=== PATIENT | female | born 1965 | race African-American/Black ===

== ENCOUNTER 2020-12-03 16:13 | Inpatient (IN) | payer OTHER ==
[~2020-12-03] VITALS: Ht 162.6 cm; Wt 108.4 kg
[2020-12-03 17:25] LABS: BASOPHILS % 0.5 % (0.0-1.0); EOSINOPHILS # (AUTO) 0.1 (0.0-0.4); EOSINOPHILS % 1.6 % (0.0-6.0); HEMATOCRIT 41.4 % (34.2-44.1); HEMOGLOBIN 13.1 g/dL (12.0-16.0); LYMPHOCYTES # (AUTO) 2.2 (1.0-3.2); LYMPHOCYTES % 35.4 % (18.0-39.1); MEAN CORPUSCULAR HEMOGLOBIN 25.7 pg (28-32); MEAN CORPUSCULAR HGB CONC 31.6 g/dL (31-35); MEAN CORPUSCULAR VOLUME 81.2 fL (81-99); MONOCYTES # (AUTO) 0.5 (0.2-0.8); MONOCYTES % 8.3 % (4.4-11.3); NEUTROPHILS # (AUTO) 3.4 (2.1-6.9); NEUTROPHILS % 53.9 % (38.7-80.0); PLATELET COUNT 227 x10e3/uL (140-360); RED CELL DISTRIBUTION WIDTH 15.8 % (11.7-14.4)
[2020-12-03 17:45] LABS: ALBUMIN 4.3 g/dL (3.5-5.0); ANION GAP 19.2 mmol/L (8-16); CALCIUM 10.1 mg/dL (8.4-10.2); CREATININE, SERUM 1.49 mg/dL (0.57-1.11); MAGNESIUM 1.7 MG/DL (1.3-2.1); POTASSIUM 3.2 mmol/L (3.5-5.1)
[2020-12-03 17:52] LABS: CREATINE KINASE MB 1.7 ng/mL (0-5.0)
[2020-12-03] MEDS ORDERED: SODIUM CHLORIDE 0.9% 1000ML 1,000 ML IV ONE (18:15)
[2020-12-03 18:24] LABS: THYROID STIMULATING HORMONE 0.811 uIU/mL (0.350-4.940)
[2020-12-03] MEDS ORDERED: SODIUM CHLORIDE 0.9% 1000ML 1,000 ML IV STA (19:25)
[2020-12-03] MEDS ORDERED: IOPAMIDOL 370 MG/ML 200 ML INFUS..BTL INJ ONE (19:46)
[2020-12-03] MEDS ORDERED: SODIUM CHLORIDE 0.9% 50ML 50 ML ONE (19:46)
[2020-12-03] MEDS ORDERED: KETOROLAC TROMETHAMINE 30 MG/ML VIAL IV STA (21:04)
[2020-12-03] MEDS: SODIUM CHLORIDE 0.9% 1000ML 1,000 ML IV SCH (22:00)
[2020-12-03] MEDS ORDERED: ONDANSETRON HCL INJ 2MG/ML 2ML 2 MG/ML VIAL IV PRN (22:00)
[2020-12-03] MEDS ORDERED: MULTIVITAMINS- 12 INJECTION 10 ML, FOLIC ACID MDV 5 MG, THIAMINE HCL INJ 500 MG in SODI... IV ONE (22:45)
[2020-12-04] VITALS (10 sets, daily range): BP systolic 111–130; BP diastolic 76–87
[2020-12-04] MEDS ORDERED: MELATONIN 5 MG TABLET PO PRN (01:15)
[2020-12-04] MEDS ORDERED: POLYETHYLENE GLYCOL 3350 17 GM PACK PO PRN (01:15)
[2020-12-04] MEDS ORDERED: ALBUTEROL/IPRATROPIUM 3 ML NEB NEB PRN (01:15)
[2020-12-04] MEDS ORDERED: ACETAMINOPHEN 325 MG TAB PO PRN (01:15)
[2020-12-04] MEDS ORDERED: DOCUSATE SODIUM 100 MG CAP PO PRN (01:15)
[2020-12-04] MEDS ORDERED: HYDRALAZINE HCL 20 MG/ML VIAL IV PRN (01:15)
[2020-12-04] MEDS ORDERED: SIMETHICONE 80 MG CHEW PO PRN (01:15)
[2020-12-04] MEDS ORDERED: LIDOCAINE 4% PATCH TP PRN (01:15)
[2020-12-04] MEDS ORDERED: TRAMADOL HCL 50 MG TAB PO PRN (01:15)
[2020-12-04] MEDS ORDERED: DIPHENHYDRAMINE HCL 25 MG CAP PO PRN (01:15)
[2020-12-04] MEDS ORDERED: AMBIEN10 MG PO (01:32)
[2020-12-04] MEDS ORDERED: LOSARTAN POTAS100 MG PO (01:32)
[2020-12-04] MEDS ORDERED: FUROSEMIDE40 MG PO (01:32)
[2020-12-04 06:38] LABS: CLARITY,URINE SL CLOUDY (CLEAR); COLOR,URINE YELLOW (YELLOW)
[2020-12-04 06:39] LABS: KETONES,URINE 1+ (NEGATIVE); LEUKOCYTE ESTERASE ,URINE NEGATIVE (NEGATIVE); NITRITE,URINE NEGATIVE (NEGATIVE); PROTEIN,URINE DIPSTICK TRACE (NEGATIVE); URINE UROBILINOGEN 0.2 mg/dL (0.2 - 1)
[2020-12-04 06:51] LABS: BACTERIA,URINE RARE /HPF; EPITHELIAL CELLS,URINE FEW /LPF
[2020-12-04] MEDS: DEXTROSE 50% SYRINGE 50 ML IV PRN ×2 (07:20→11:05)
[2020-12-04 07:42] LABS: BASOPHILS % 0.3 % (0.0-1.0); EOSINOPHILS # (AUTO) 0.1 (0.0-0.4); EOSINOPHILS % 2.6 % (0.0-6.0); HEMATOCRIT 35.9 % (34.2-44.1); HEMOGLOBIN 11.1 g/dL (12.0-16.0); LYMPHOCYTES # (AUTO) 1.6 (1.0-3.2); LYMPHOCYTES % 40.7 % (18.0-39.1); MEAN CORPUSCULAR HEMOGLOBIN 25.5 pg (28-32); MEAN CORPUSCULAR HGB CONC 30.9 g/dL (31-35); MEAN CORPUSCULAR VOLUME 82.3 fL (81-99); MONOCYTES # (AUTO) 0.2 (0.2-0.8); MONOCYTES % 5.7 % (4.4-11.3); NEUTROPHILS # (AUTO) 1.9 (2.1-6.9); NEUTROPHILS % 50.7 % (38.7-80.0); PLATELET COUNT 167 x10e3/uL (140-360); RED BLOOD COUNT 4.36 x10e6/uL (3.6-5.1); RED CELL DISTRIBUTION WIDTH 15.9 % (11.7-14.4)
[2020-12-04 08:03] LABS: ALBUMIN 3.4 g/dL (3.5-5.0); ANION GAP 13.8 mmol/L (8-16); CALCIUM 8.5 mg/dL (8.4-10.2); CREATININE, SERUM 1.19 mg/dL (0.57-1.11)
[2020-12-04 08:07] LABS: POTASSIUM 2.8 mmol/L (3.5-5.1)
[2020-12-04] MEDS ORDERED: POTASSIUM CHLORIDE 20 MEQ TAB CR PO STA (08:11)
[2020-12-04] MEDS: MORPHINE SULFATE INJ 4 MG/ML INJ 1ML IV PRN ×2 (08:18→18:17)
[2020-12-04 08:19] LABS: CREATINE KINASE 803 IU/L (29-168)
[2020-12-04] MEDS: SODIUM CHLORIDE 0.9% 1000ML 1,000 ML IV SCH (11:54)
[2020-12-04] MEDS: METOCLOPRAMIDE HCL 10 MG/2ML VIAL IV SCH ×2 (14:48→20:29)
[2020-12-04] MEDS: DEXTROSE 5%/0.9% SOD CHL 1,000 ML IV SCH ×2 (14:49→16:08)
[2020-12-04 16:05] LABS: CREATINE KINASE 794 IU/L (29-168)
[2020-12-04] MEDS: CEFDINIR 300 MG CAP PO SCH (17:27)
[2020-12-04] MEDS ORDERED: VITAMIN D350 MCG PO (17:46)
[2020-12-04] MEDS ORDERED: B-125000 MC1 SL (17:46)
[2020-12-04] MEDS ORDERED: NEXIUM40 MG PO (17:46)
[2020-12-04] MEDS ORDERED: BIOTIN2500 MCG PO (17:46)
[2020-12-04] MEDS ORDERED: FEROSUL325 MG PO (17:46)
[2020-12-04] MEDS ORDERED: POTASSIUM CHLORIDE 20 MEQ TAB CR PO ONE (18:00)
[2020-12-05] VITALS (7 sets, daily range): BP systolic 92–120; BP diastolic 68–96
[2020-12-05] MEDS: METOCLOPRAMIDE HCL 10 MG/2ML VIAL IV SCH ×4 (01:57→20:10)
[2020-12-05] MEDS: DEXTROSE 5%/0.9% SOD CHL 1,000 ML IV SCH ×3 (01:57→20:15)
[2020-12-05 05:25] LABS: BASOPHILS % 0.5 % (0.0-1.0); EOSINOPHILS # (AUTO) 0.2 (0.0-0.4); HEMATOCRIT 34.4 % (34.2-44.1); HEMOGLOBIN 11.1 g/dL (12.0-16.0); LYMPHOCYTES # (AUTO) 1.9 (1.0-3.2); LYMPHOCYTES % 45.8 % (18.0-39.1); MEAN CORPUSCULAR HEMOGLOBIN 26.4 pg (28-32); MEAN CORPUSCULAR HGB CONC 32.3 g/dL (31-35); MEAN CORPUSCULAR VOLUME 81.9 fL (81-99); MONOCYTES # (AUTO) 0.4 (0.2-0.8); MONOCYTES % 9.4 % (4.4-11.3); NEUTROPHILS # (AUTO) 1.6 (2.1-6.9); NEUTROPHILS % 40.1 % (38.7-80.0); PLATELET COUNT 177 x10e3/uL (140-360); RED CELL DISTRIBUTION WIDTH 16.3 % (11.7-14.4)
[2020-12-05 05:47] LABS: ALBUMIN 3.1 g/dL (3.5-5.0); ALBUMIN/GLOBULIN RATIO 1.1 (0.8-2.0); ANION GAP 11.4 mmol/L (8-16); CALCIUM 8.6 mg/dL (8.4-10.2); CREATININE, SERUM 0.84 mg/dL (0.57-1.11); POTASSIUM 3.4 mmol/L (3.5-5.1)
[2020-12-05 06:20] LABS: MAGNESIUM 1.5 MG/DL (1.3-2.1); PHOSPHORUS 2.6 MG/DL (2.3-4.7)
[2020-12-05 06:34] LABS: THYROID STIMULATING HORMONE 1.853 uIU/mL (0.350-4.940)
[2020-12-05] MEDS ORDERED: ONDANSETRON HCL 4 MG ORAL DISINTEGRATING TAB PO PRN (09:00)
[2020-12-05] MEDS: BIOTIN 5000 MCG PO SCH ×2 (09:00→16:46)
[2020-12-05] MEDS: CEFDINIR 300 MG CAP PO SCH ×2 (11:22→17:01)
[2020-12-05] MEDS: FERROUS SULFATE 325 MG TAB PO SCH (11:22)
[2020-12-05] MEDS: CYANOCOBALAMIN 1,000 MCG TAB PO SCH (11:23)
[2020-12-05] MEDS: PANTOPRAZOLE SOD 40 MG TABEC PO SCH (11:23)
[2020-12-05] MEDS: CHOLECALCIFEROL 1,000 UNIT TAB PO SCH (11:23)
[2020-12-05] MEDS ORDERED: ENOXAPARIN SOD INJ 40 MG/0.4 ML SYR SC SCH (17:00)
[2020-12-06 01:31] VITALS: BP 108/79
[2020-12-06] MEDS: METOCLOPRAMIDE HCL 10 MG/2ML VIAL IV SCH ×2 (02:40→10:14)
[2020-12-06 04:54] LABS: BASOPHILS % 0.5 % (0.0-1.0); EOSINOPHILS # (AUTO) 0.2 (0.0-0.4); HEMATOCRIT 34.5 % (34.2-44.1); HEMOGLOBIN 10.8 g/dL (12.0-16.0); LYMPHOCYTES % 50.6 % (18.0-39.1); MEAN CORPUSCULAR HEMOGLOBIN 25.7 pg (28-32); MEAN CORPUSCULAR HGB CONC 31.3 g/dL (31-35); MEAN CORPUSCULAR VOLUME 81.9 fL (81-99); MONOCYTES # (AUTO) 0.3 (0.2-0.8); MONOCYTES % 8.2 % (4.4-11.3); NEUTROPHILS # (AUTO) 1.5 (2.1-6.9); NEUTROPHILS % 36.7 % (38.7-80.0); PLATELET COUNT 158 x10e3/uL (140-360); RED BLOOD COUNT 4.21 x10e6/uL (3.6-5.1); RED CELL DISTRIBUTION WIDTH 16.2 % (11.7-14.4)
[2020-12-06 05:15] LABS: ANION GAP 12.2 mmol/L (8-16); CALCIUM 8.4 mg/dL (8.4-10.2); CREATININE, SERUM 0.72 mg/dL (0.57-1.11); POTASSIUM 3.2 mmol/L (3.5-5.1)
[2020-12-06] MEDS: DEXTROSE 5%/0.9% SOD CHL 1,000 ML IV SCH (05:18)
[2020-12-06 05:59] VITALS: BP 110/85
[2020-12-06 08:02] VITALS: BP 121/92
[2020-12-06] MEDS: BIOTIN 5000 MCG PO SCH (09:00)
[2020-12-06 09:25] VITALS: BP 121/92
[2020-12-06] MEDS: PANTOPRAZOLE SOD 40 MG TABEC PO SCH (10:14)
[2020-12-06] MEDS: CYANOCOBALAMIN 1,000 MCG TAB PO SCH (10:14)
[2020-12-06] MEDS: CHOLECALCIFEROL 1,000 UNIT TAB PO SCH (10:14)
[2020-12-06] MEDS: CEFDINIR 300 MG CAP PO SCH (10:14)
[2020-12-06] MEDS: FERROUS SULFATE 325 MG TAB PO SCH (10:14)
[2020-12-06 12:35] VITALS: BP 127/96
[2020-12-06] MEDS ORDERED: CEFDINIR300 MG PO (15:17)
[2020-12-06] MEDS ORDERED: REGLAN10 MG PO (15:18)
== END 2020-12-06 15:34 | disposition home or self-care (01) | DRG 683 ==
LOC: ER 17:20 → ERHOLD 21:49 → MED/SURG2 12-04 00:36 → OBSVTOIN 12-06 08:28
PROVIDERS: ADMIT Internal Medicine; ATTEND Internal Medicine
DX: N17.9 Acute kidney failure, unspecified (principal); M62.82 Rhabdomyolysis; N39.0 Urinary tract infection, site not specified; Z68.41 Body mass index [BMI] 40.0-44.9, adult; E87.6 Hypokalemia; R10.13 Epigastric pain; Z98.84 Bariatric surgery status; E66.01 Morbid (severe) obesity due to excess calories; E86.0 Dehydration
CPT/HCPCS: 36415; 70450; 71046; 74177; 80048; 80053; 81001; 82550; 82553; 82948; 83735; 83880; 84100; 84443; 84484; 85025; 93005; 96361; 99284; G0378; J1650; J1885; J2270; J2405; J2765; J3411; J7030; J7042; J7799; Q9967